=== PATIENT | male | born 1960 | race Caucasian/White ===

== ENCOUNTER 2017-08-16 19:58 | Emergency (ER) | payer MEDICARE ==
[2017-08-16] MEDS ORDERED: Diphtheria,Pertussis(Acell),Tetanus Vaccine 0.5 ML Syringe IM ONE (20:07)
--- NOTE | 2017-08-16 20:10 | EDM.PDOC ---
ED HPI GENERAL MEDICAL PROBLEM - General Chief Complaint: Bite:Animal, Insect Stated Complaint: DOG BITE/RT INDEX FINGER Time Seen by Provider: 08/16/17 20:02 - History of Present Illness INITIAL COMMENTS - FREE TEXT/NARRATIVE: HISTORY AND PHYSICAL: History of present illness: Patient is 56-year-old male presents with a concern of dog bite to his right hand that occurred yesterday he's had some small swelling to the abrasions and wounds he is requesting tetanus he is not interested in any other diagnostics. The dog was his friends who is in custody and up-to-date on his immunizations Review of systems: As per history of present illness and below otherwise all systems reviewed and negative. Past medical history: As per history of present illness and as reviewed below otherwise noncontributory. Surgical history: As per history of present illness and as reviewed below otherwise noncontributory. Social history: No reported history of drug or alcohol abuse. Family history: As per history of present illness and as reviewed below otherwise noncontributory. Physical exam: HEENT: Atraumatic, normocephalic, pupils reactive, negative for conjunctival pallor or scleral icterus, mucous membranes moist, throat clear, neck supple, nontender, trachea midline. Lungs: Clear to auscultation, breath sounds equal bilaterally, chest nontender. Heart: S1S2, regular, negative for clicks, rubs, or JVD. Abdomen: Soft, nondistended, nontender. Negative for masses or hepatosplenomegaly. Negative for costovertebral tenderness. Pelvis: Stable nontender. Genitourinary: Deferred. Rectal: Deferred. Extremities: Patient has multiple wounds on his right hand he has no evidence of tendon injury CMS neurovascular is unremarkable there's small swelling with no significant erythema Neuro: Awake, alert, oriented. Cranial nerves II through XII unremarkable. Cerebellum unremarkable. Motor and sensory unremarkable throughout. Exam nonfocal. Diagnostics: Deferred Therapeutics: Tetanus 0.5 TD IM Impression: #1 dog bite right hand Definitive disposition and diagnosis as appropriate pending reevaluation and review of above. - Related Data Allergies Allergy/AdvReac Type Severity Reaction Status Date / Time No Known Allergies Allergy Verified 08/16/17 20:05 Home Meds: Home Meds . [No Known Home Meds] 08/16/17 [History] ED ROS GENERAL - Review of Systems Review Of Systems: ROS reveals no pertinent complaints other than HPI. ED EXAM, ANIMAL BITE - Physical Exam Exam: See Below (See dictation) Departure - Departure Time of Disposition: 20:08 Disposition: Home, Self-Care 01 Condition: Good Clinical Impression: Dog bite - Discharge Information Referrals: PCP,None [Primary Care Provider] - Additional Instructions: The following information is given to patients seen in the emergency department who are being discharged to home. This information is to outline your options for follow-up care. We provide all patients seen in our emergency department with a follow-up referral. The need for follow-up, as well as the timing and circumstances, are variable depending upon the specifics of your emergency department visit. If you don't have a primary care physician on staff, we will provide you with a referral. We always advise you to contact your personal physician following an emergency department visit to inform them of the circumstance of the visit and for follow-up with them and/or the need for any referrals to a consulting specialist. The emergency department will also refer you to a specialist when appropriate. This referral assures that you have the opportunity for followup care with a specialist. All of these measure are taken in an effort to provide you with optimal care, which includes your followup. Under all circumstances we always encourage you to contact your private physician who remains a resource for coordinating your care. When calling for followup care, please make the office aware that this follow-up is from your recent emergency room visit. If for any reason you are refused follow-up, please contact the [facility] emergency department at and asked to speak to the emergency department charge nurse. MAURO [facility] [address] [place] [id number] [facility] [address] [place] [address] [place] [id number] Augmentin as prescribed follow-up primary medical doctor and/or clinic and/or hand surgery call to schedule appointment
== END 2017-08-16 20:25 | disposition home or self-care (01) ==
LOC: MW.ED 19:58
DX: S61.451A Open bite of right hand, initial encounter (principal); W54.0XXA Bitten by dog, initial encounter; Z23 Encounter for immunization
CPT/HCPCS: 90471; 90715; 99283; 99283-25